=== PATIENT | male | born 1975 | race Two or more races ===

== ENCOUNTER 2024-09-04 08:48 | Emergency (ER) | payer OTHER ==
[~2024-09-04] VITALS: Ht 170.2 cm; Wt 99.8 kg
[2024-09-04] MEDS ORDERED: LOTREL 10-20 M1 EACH PO (09:08)
[2024-09-04] MEDS ORDERED: cloNIDine HCL 0.3 MG TABLET PO STA (10:00)
[2024-09-04] MEDS ORDERED: KETOROLAC TROMETHAMINE 60 MG VIAL IM STA (10:02)
[2024-09-04 10:21] LABS: HEMATOCRIT 46.4 % (39.0-48.0); HEMOGLOBIN 16.4 g/dL (13-16.00); MEAN CELL VOLUME 86.9 fL (80.0-100.00); MEAN CORPUSCULAR HEMOGLOBIN 30.8 pg (27.00-32.0); MEAN CORPUSCULAR HGB CONC 35.4 g/dl (32.0-36.0); PLATELET COUNT 310 K/uL (150-450); RED BLOOD COUNT 5.34 M/uL (4.00-6.00); RED CELL DISTRIBUTION WIDTH 13.7 % (11.5-14.5)
[2024-09-04 10:57] LABS: CALCIUM 9.6 mg/dL (8.5-10.1); CREATININE SERUM 0.84 mg/dL (0.70-1.30); GFR 96.72; POTASSIUM 4.75 mEq/L (3.5-5.1)
[2024-09-04] MEDS ORDERED: ALPRAzolam 0.5 MG TABLET PO STA (14:48)
[2024-09-04] MEDS ORDERED: ALPRAzolam 1 MG TABLET PO STA (14:51)
[2024-09-04] MEDS ORDERED: CLONAZEPAM 1 MG TABLET PO STA (15:00)
[2024-09-04] MEDS ORDERED: ALPRAzolam 1 MG TABLET PO ONE (15:15)
== END 2024-09-04 15:07 | disposition home or self-care (01) ==
LOC: ER 08:50
PROVIDERS: General Practice
DX: R07.9 Chest pain, unspecified (principal); I10 Essential (primary) hypertension